=== PATIENT | male | born 1980 | race Caucasian/White ===

== ENCOUNTER 2016-09-03 12:53 | Emergency (ER) | payer SELFPAY ==
[2016-09-03 13:04] VITALS: BMI 27.3
[2016-09-03] MEDS ORDERED: SODIUM CHLORIDE 1,000 ML IV STA (14:41)
[2016-09-03] MEDS ORDERED: ACETAMINOPHEN 1000 MG/100 ML VIAL (NON FORMULARY) IVPB ONE ×2 (14:41→20:30)
--- NOTE | 2016-09-03 14:53 | PDOC ---
History of Present Illness - General Chief Complaint: SIRS, Suspected/Possible Stated Complaint: FEVER, CHILLS Time Seen by Provider: 09/03/16 14:38 History Source: Patient Exam Limitations: No Limitations - History of Present Illness Initial Comments: CHIEF COMPLAINT: 36 y/o febrile, tachycardic male with no significant PMH c/o sudden onset body aches and chills this morning. HISTORY OF PRESENT ILLNESS: The patient also admits to dry cough and abdominal pain. He denies n/v/d, CP, SOB, hematuria, dysuria. He did not take any OTC medications for his symptoms. Vital signs on arrival are notable for pulse of 120 secondary to temp of 100.3. REVIEW OF SYSTEMS: GENERAL/CONSTITUTIONAL: Subjective fever/chills. No weakness. No weight change. +body aches. HEAD, EYES, EARS, NOSE AND THROAT: No change in vision. No ear pain or discharge. No sore throat. CARDIOVASCULAR: No chest pain or shortness of breath. RESPIRATORY: +dry cough. No wheezing, or hemoptysis. GASTROINTESTINAL: +abd pain. No nausea, vomiting, diarrhea. GENITOURINARY: No dysuria, frequency, or change in urination. MUSCULOSKELETAL: No joint or muscle swelling or pain. No neck or back pain. SKIN: No rash or easy bruising. NEUROLOGIC: +headache. No vertigo, loss of consciousness, or loss of sensation. PHYSICAL EXAM: GENERAL: The patient is awake, alert, and fully oriented, in no acute distress. He is non toxic but ill appearing. HEAD: Normal with no signs of trauma. ENT: Pupils equal, round and reactive to light, extraocular movements intact, sclera anicteric, conjunctiva clear. Neck supple. LUNGS: Clear to auscultation bilaterally. Normal excursion. No respiratory distress or use of accessory muscles. CV: Rapid rate/regular rhythm, S1/S2, no MRG. Cap refill < 2 sec. ABDOMEN: Soft, non-distended, diffuse TTP of entire abdomen. +heel jar sign. No rebound, guarding or rigidity. EXTREMITIES: Normal range of motion, no edema. NEUROLOGICAL: Normal speech, normal gait. CN II-XII grossly intact. PSYCH: Normal mood, normal affect. SKIN: Warm, dry, normal turgor, no rashes or lesions noted. Past History - Past Medical History Allergies/Adverse Reactions: Allergies Allergy/AdvReac Type Severity Reaction Status Date / Time No Known Allergies Allergy Verified 09/03/16 13:04 Home Medications: Ambulatory Orders Ciprofloxacin HCl [Cipro] 500 mg PO BID #20 tablet 09/03/16 Metronidazole [Flagyl -] 500 mg PO TID #30 tablet 09/03/16 Other medical history: NONE - Psycho/Social/Smoking Cessation Hx Anxiety: No Suicidal Ideation: No Smoking History: Never smoked Hx Alcohol Use: No Drug/Substance Use Hx: No Substance Use Type: None *Physical Exam - Vital Signs Last Vital Signs Temp Pulse Resp BP Pulse Ox 100.3 F H 120 H 20 113/68 97 09/03/16 13:01 09/03/16 13:01 09/03/16 13:01 09/03/16 13:01 09/03/16 13:01 ED Treatment Course - LABORATORY CBC & Chemistry Diagram: 09/03/16 15:19 09/03/16 15:19 Medical Decision Making - Medical Decision Making A/P: 36 y/o febrile male with possible influenza. Also concerned for early appendicitis. Plan is as follows: 1. Labs 2. UA 3. IV fluids 4. IV tylenol 5. Influenza WBC count - 19 with left shift Influenza A&B - negative Pt is currently drinking contrast for scan of abd/pelvis Pt to go to CT at 6pm. I am signing this patient out to my colleague: IVANA Smith In brief, this patient is being seen in the ED for a chief complaint of: body pain, chills I have completed the initial assessment interview note and have ordered: labs, UA, influenza, CT scan abd/pelvis I have reviewed the following results: labs, UA, influenza Pending results are: CT scan abd/pelvis Please call the PCP: none Plan for disposition is as follows: Pending *DC/Admit/Observation/Transfer Diagnosis at time of Disposition: Body aches, Ileitis, terminal Abdominal pain Qualifiers: Abdominal location: generalized Qualified Code(s): R10.84 - Generalized abdominal pain Fever Qualifiers: Fever type: unspecified Qualified Code(s): R50.9 - Fever, unspecified - Discharge Dispostion Disposition: HOME Condition at time of disposition: Improved - Prescriptions Prescriptions: Ciprofloxacin HCl [Cipro] 500 mg PO BID #20 tablet Metronidazole [Flagyl -] 500 mg PO TID #30 tablet - Referrals Referrals: Oleksandr Savage MD [Staff Physician] - Brandon Elliott MD [Staff Physician] - - Patient Instructions Printed Discharge Instructions: DI for Abdominal Pain-Adult Additional Instructions: Please take medications as prescribed. Follow up with a primary care doctor and rn homecare by the end of this week as discussed. If you experience any persistent vomiting or diarrhea, rectal bleeding, severe pain to your abdomen, rash, fever unrelieved by Tylenol, or any new or worsening symptoms, please return to the ER.
[2016-09-03] MEDS ORDERED: ACETAMINOPHEN INJECTION 100 ML IVPB ONE (15:02)
[2016-09-03 15:31] LABS: BASOPHIL 0.4 % (0-2.0); EOSINOPHIL 0.1 % (0-4.5); MCH 29.5 pg (25.7-33.7); MCHC 34.2 g/dl (32.0-35.9); MEAN CELL VOLUME 86.4 fl (80-96); MEAN PLT VOLUME 10.5 fl (7.5-11.1); NEUTROPHILS 86.2 % (42.8-82.8); PLATELET COUNT 172 K/MM3 (134-434); RDW 13.9 % (11.9-15.9); WHITE BLOOD COUNT 19.3 K/mm3 (4.0-10.0)
[2016-09-03 15:50] LABS: URINE APPEARANCE CLEAR; URINE BILIRUBIN NEGATIVE (NEGATIVE); URINE COLOR YELLOW; URINE GLUCOSE (UA) NEGATIVE (NEGATIVE); URINE KETONE NEGATIVE (NEGATIVE); URINE LEUK ESTERASE NEGATIVE (NEGATIVE); URINE NITRITE NEGATIVE (NEGATIVE); URINE UROBILINOGEN NEGATIVE E.U./dl (0.2-1.0)
[2016-09-03 15:51] LABS: URINE BLOOD 2+ (NEGATIVE); URINE PROTEIN 1+ (NEGATIVE)
[2016-09-03 15:56] LABS: ALBUMIN 4.2 g/dl (3.4-5.0); ANION GAP 8 (8-16); BILIRUBIN,TOTAL 0.9 mg/dL (0.2-1.0); CALCIUM 9.3 mg/dL (8.5-10.1); CO2 27 mmol/L (21-32); CREATININE 1.2 mg/dL (0.7-1.3); GLUCOSE,RANDOM 93 mg/dL (74-106); SGOT/AST 20 U/L (15-37); SGPT/ALT 26 U/L (12-78); TOT PROT 8.3 g/dl (6.4-8.2); URINE MUCUS MANY; URINE RBC 9 /hpf (0-3); URINE WBC 1 /hpf (3-5)
[2016-09-03 15:57] LABS: ALK PHOS 106 U/L (45-117)
--- NOTE | 2016-09-03 19:24 | PDOC ---
[id number] 98 09/03/16 19:20 09/03/16 19:20 09/03/16 19:20 09/03/16 19:20 09/03/16 19:20 - Physical Exam Comments: 09/03/16 19:22 Sign-out received from outgoing ER provider Amy. Pt interviewed and examined. Ancillary studies reviewed. 09/03/16 20:35 CT results: No CT evidence of acute appy. Nonspecific concentric wall thickening noted involving terminal ileum probably on basis of inflammatory/ infectious ileitis. Will discharge to home with abx and close f/u with GI. Advised patient to take medication as prescribed and f/u with PCP and GI by the end of the week. Patient verbalized understanding and agrees to plan. ED Treatment Course - LABORATORY CBC & Chemistry Diagram: 09/03/16 15:19 09/03/16 15:19 - ADDITIONAL ORDERS Additional order review: Laboratory Results 09/03/16 09/03/16 15:19 15:19 Sodium 137 Potassium 4.1 Chloride 102 Carbon Dioxide 27 Anion Gap 8 BUN 12 Creatinine 1.2 Creat Clearance w eGFR > 60 Random Glucose 93 Calcium 9.3 Total Bilirubin 0.9 AST 20 ALT 26 Alkaline Phosphatase 106 Total Protein 8.3 H Albumin 4.2 Urine Color Yellow Urine Appearance Clear Urine pH 6.0 Ur Specific [place] 1.025 Urine Protein 1+ H Urine Glucose (UA) Negative Urine Ketones Negative Urine Blood 2+ H Urine Nitrite Negative Urine Bilirubin Negative Urine Urobilinogen Negative Ur Leukocyte Esterase Negative Urine RBC 9 Urine WBC 1 Urine Mucus Many 09/03/16 15:00 Influenza Types A,B Antigen (SADIQ) - Final Nasopharyngeal Swab - Final 09/03/16 15:19 RBC 5.16 MCV 86.4 MCHC 34.2 RDW 13.9 MPV 10.5 Neutrophils % 86.2 H Lymphocytes % 4.2 L Monocytes % 9.1 Eosinophils % 0.1 Basophils % 0.4 - Medications Given in the ED: ED Medications Discontinued Medications Generic Name Dose Route Start Last Admin Trade Name Freq PRN Reason Stop Dose Admin Acetaminophen 1,000 mg 09/03/16 14:41 09/03/16 15:17 Ofirmev Injection - IVPB 09/03/16 14:42 1,000 mg ONCE ONE Administration Sodium Chloride 1,000 mls @ 1,000 mls/hr 09/03/16 14:41 09/03/16 15:17 Normal Saline - IV 09/03/16 15:40 1,000 mls/hr ASDIR STA Administration *DC/Admit/Observation/Transfer Diagnosis at time of Disposition: Body aches Abdominal pain Qualifiers: Abdominal location: generalized Qualified Code(s): R10.84 - Generalized abdominal pain Fever Qualifiers: Fever type: unspecified Qualified Code(s): R50.9 - Fever, unspecified Ileitis, terminal Qualifiers: Digestive disease complication type: unspecified complication Qualified Code(s) : K50.019 - Crohn's disease of small intestine with unspecified complications - Discharge Dispostion Disposition: HOME Condition at time of disposition: Improved Admit: No - Prescriptions Prescriptions: Ciprofloxacin HCl [Cipro] 500 mg PO BID #20 tablet Metronidazole [Flagyl -] 500 mg PO TID #30 tablet - Referrals Referrals: Oleksandr Savage MD [Staff Physician] - Brandon Elliott MD [Staff Physician] - - Patient Instructions Printed Discharge Instructions: DI for Abdominal Pain-Adult Additional Instructions: Please take medications as prescribed. Follow up with a primary care doctor and boiler repairman by the end of this week as discussed. If you experience any persistent vomiting or diarrhea, rectal bleeding, severe pain to your abdomen, rash, fever unrelieved by Tylenol, or any new or worsening symptoms, please return to the ER.
[2016-09-03] MEDS ORDERED: ACETAMINOPHEN 325 MG TABLET (FP) PO ONE (20:33)
[2016-09-03] MEDS ORDERED: CIPROFLOXACIN 250 MG TABLET (RESTRICTED TO ID) PO ONE (20:33)
[2016-09-03] MEDS ORDERED: metroNIDAZOLE 250 MG TABLET PO ONE (20:33)
--- NOTE | 2016-09-03 20:34 | PDOC ---
*Physical Exam - Vital Signs Last Vital Signs Temp Pulse Resp BP Pulse Ox 98.7 F 76 17 106/66 98 09/03/16 19:20 09/03/16 19:20 09/03/16 19:20 09/03/16 19:20 09/03/16 19:20 ED Treatment Course - LABORATORY CBC & Chemistry Diagram: 09/03/16 15:19 09/03/16 15:19 - ADDITIONAL ORDERS Additional order review: Laboratory Results 09/03/16 09/03/16 15:19 15:19 Sodium 137 Potassium 4.1 Chloride 102 Carbon Dioxide 27 Anion Gap 8 BUN 12 Creatinine 1.2 Creat Clearance w eGFR > 60 Random Glucose 93 Calcium 9.3 Total Bilirubin 0.9 AST 20 ALT 26 Alkaline Phosphatase 106 Total Protein 8.3 H Albumin 4.2 Urine Color Yellow Urine Appearance Clear Urine pH 6.0 Ur Specific [place] 1.025 Urine Protein 1+ H Urine Glucose (UA) Negative Urine Ketones Negative Urine Blood 2+ H Urine Nitrite Negative Urine Bilirubin Negative Urine Urobilinogen Negative Ur Leukocyte Esterase Negative Urine RBC 9 Urine WBC 1 Urine Mucus Many 09/03/16 15:00 Influenza Types A,B Antigen (SADIQ) - Final Nasopharyngeal Swab - Final 09/03/16 15:19 RBC 5.16 MCV 86.4 MCHC 34.2 RDW 13.9 MPV 10.5 Neutrophils % 86.2 H Lymphocytes % 4.2 L Monocytes % 9.1 Eosinophils % 0.1 Basophils % 0.4 - Medications Given in the ED: ED Medications Discontinued Medications Generic Name Dose Route Start Last Admin Trade Name Freq PRN Reason Stop Dose Admin Acetaminophen 1,000 mg 09/03/16 14:41 09/03/16 15:17 Ofirmev Injection - IVPB 09/03/16 14:42 1,000 mg ONCE ONE Administration Sodium Chloride 1,000 mls @ 1,000 mls/hr 09/03/16 14:41 09/03/16 15:17 Normal Saline - IV 09/03/16 15:40 1,000 mls/hr ASDIR STA Administration Medical Decision Making - Medical Decision Making 09/03/16 20:32 agree with care from IVANA Smith. Low grade temp, mild wall thickening at the ileum. Will treat with ABx. *DC/Admit/Observation/Transfer Diagnosis at time of Disposition: Abdominal pain, Fever, Body aches - Discharge Dispostion Condition at time of disposition: Improved
[2016-09-03] MEDS ORDERED: ACETAMINOPHEN 325 MG TABLET (FP) ONE (20:38)
[2016-09-03] MEDS ORDERED: metroNIDAZOLE 250 MG TABLET ONE (20:38)
[2016-09-03 20:49] VITALS: BP 134/78; PULSE 88; TEMP 98.9
== END 2016-09-03 21:00 | disposition home or self-care (01) ==
LOC: JER 12:53
PROC: 3E033NZ Introduction of Analgesics, Hypnotics, Sedatives into Peripheral Vein, Percutaneous Approach (ICD-10-PCS; principal; 2016-09-03)
PROC: 3E0337Z Introduction of Electrolytic and Water Balance Substance into Peripheral Vein, Percutaneous Approach (ICD-10-PCS; 2016-09-03)
DX: R50.9 Fever, unspecified (principal); R10.9 Unspecified abdominal pain
CPT/HCPCS: 36415; 74177-TC; 80053; 81003; 81015; 85025; 87086; 87804; 99284-25; Q9967

== ENCOUNTER 2021-05-14 17:58 | Emergency (ER) | payer SELFPAY ==
[2021-05-14 18:31] VITALS: BP 128/75; PULSE 68; TEMP 97.8; BMI 25.3
[2021-05-14] MEDS ORDERED: DIPHTH,PERTUSS(ACELL),TET 0.5 ML DISP.SYRIN IM ONE ×2 (20:01→20:07)
== END 2021-05-14 20:17 | disposition home or self-care (01) ==
LOC: JERFT 17:58
PROC: 3E0234Z Introduction of Serum, Toxoid and Vaccine into Muscle, Percutaneous Approach (ICD-10-PCS; principal; 2021-05-14)
DX: S81.012A Laceration without foreign body, left knee, initial encounter (principal); W26.8XXA Contact with other sharp object(s), not elsewhere classified, initial encounter
CPT/HCPCS: 90715; 99284-25